=== PATIENT | female | born 1995 | race Hispanic/Latino ===

== ENCOUNTER 2017-09-17 22:27 | Emergency (ER) | payer SELFPAY ==
[2017-09-18] MEDS ORDERED: diphenhydrAMINE 25 MG CAP ONE (01:38)
[2017-09-18] MEDS ORDERED: predniSONE 20 MG TAB ONE (01:38)
== END 2017-09-18 01:52 | disposition home or self-care (01) ==
LOC: ERS 22:27
DX: L03.114 Cellulitis of left upper limb (principal); X50.9XXA Other and unspecified overexertion or strenuous movements or postures, initial encounter
CPT/HCPCS: 99283; J7506

== ENCOUNTER 2018-07-07 12:45 | Emergency (ER) | payer SELFPAY ==
[2018-07-07] MEDS ORDERED: Iopamidol 370 76% 100 ML VIAL ONE (13:17)
[2018-07-07 14:23] LABS: #Eosinphils 0.2 thou/uL (0.0-0.7); #Lymphocytes 0.8 thou/uL (1.20-3.40); #Monocytes 1.3 thou/uL (0.11-0.59); #Neutrophils 15.4 thou/uL (1.40-6.50); %Eosinophils 1.3 % (0.0-10.0); %Lymphocytes 4.5 % (21.0-51.0); %Monocytes 7.5 % (0.0-10.0); %Neutrophils 86.8 % (42.0-75.0); Mean Corpuscular HGB CONC 33.5 g/dL (32.0-36.0); Mean Corpuscular Hemoglobin 29.5 pg (27.0-31.0); Mean Corpuscular Volume 88.2 fL (78.0-98.0); Platelet Count 317 thou/uL (130-400); RBC Distribution Width 11.9 % (11.5-14.5); Red Blood Cell (RBC) Count 4.75 mill/uL (4.20-5.40); White Blood Cell (WBC) Count 17.8 thou/uL (4.8-10.8)
--- NOTE | 2018-07-07 14:40 | CT ---
CT BRAIN WITHOUT IV CONTRAST: HISTORY: Syncope with head injury. Dizziness. FINDINGS: Ethmoid and sphenoid sinus mucosal changes. The mastoids appear clear of acute process. No focal ma ss or midline shift. No intraaxial or extraaxial hemorrhage. IMPRESSION: 1. No significant mass, bleed, or other acute intracranial process. 2. Sinus mucosal disease. POS: OFF
[2018-07-07 14:43] LABS: Bilirubin Small (Negative); Blood, Urine Negative (Negative); Clarity CLOUDY (Clear); Glucose, Urine (Dipstick) Negative (Negative); Leukocyte Small (Negative); Nitrite Negative (Negative); Protein, Urine (Dipstick) 30 mg/dL (Neg-Trace); Specific Gravity, Urine 1.026 (1.002-1.036)
[2018-07-07 14:44] LABS: Pregnancy Test - Urine (BHCG) Negative (Negative); Pregu Control Background? CLEAR/WHITE (CLR/WHITE); Pregu Control Bar Appear? YES (CONTROL BAR); Specific Gravity 1.026 (1.002-1.036)
[2018-07-07 14:46] LABS: ALT (SGPT) 10 U/L (8-55); AST (SGOT) 17 U/L (5-34); Alkaline Phosphatase 88 U/L (40-150); Anion Gap 15 mmol/L (10-20); BUN (Urea Nitrogen) 12 mg/dL (7.0-18.7); Bilirubin, Total 0.9 mg/dL (0.2-1.2); Calc. Creatinine Clearance 0 mL/min (70-130); Calcium 8.9 mg/dL (7.8-10.44); Carbon Dioxide 21 mmol/L (22-29); Chloride 106 mmol/L (98-107); Estimated GFR-MDRD Greater than 90; Globulin 2.8 g/dL (2.4-3.5); Glucose 104 mg/dL (70-105); Potassium 3.7 mmol/L (3.5-5.1); Protein, Total 6.8 g/dL (6.0-8.3); Sodium 138 mmol/L (136-145)
[2018-07-07 14:47] LABS: Bacteria/HPF 1+ HPF (None Seen)
[2018-07-07 14:59] LABS: Hyaline Casts/LPF 0-3 HYALINE CAST LPF (0-3 Hyaline)
[2018-07-07 15:00] LABS: Renal Epithelial None Seen HPF (0-3); Transitional Epithelial NONE SEEN HPF (0-3)
--- NOTE | 2018-07-07 15:41 | CT ---
CT OF THE ABDOMEN AND PELVIS WITH CONTRAST: History: Left upper quadrant abdominal pain and dizziness. Syncope. Nausea, vomiting, and diarrhea. Technique: Multiple contiguous axial images were obtained in a CT of the abdomen and pelvis with contrast. Coron al reformats were performed. FINDINGS: The liver, gallbladder, kidneys, adrenal glands, spleen, and pancreas are unremarkable. No free air or stranding changes seen in the abdomen or pelvis A small amount of free fluid in the pelvis is like ly physiologic. The large and small bowel are unremarkable. The appendix is not definitely seen. No abdominal or pelv ic lymphadenopathy are seen. A calcified granuloma is seen in the left lung base. The patient has a naval piercing. The osseous st ructures are unremarkable. IMPRESSION: No evidence of acute intraabdominal/pelvic abnormalities. POS: [facility]
[2018-07-07] MEDS ORDERED: Ondansetron PF 4 MG/2 ML Vial ONE (16:53)
== END 2018-07-07 16:55 | disposition home or self-care (01) ==
LOC: EEVIPCON 12:45 → ERS 12:45
DX: A09 Infectious gastroenteritis and colitis, unspecified (principal); D72.829 Elevated white blood cell count, unspecified
CPT/HCPCS: 36415; 70450; 74177; 80053; 81003; 81015; 81025; 85025; 93005; 96361; 96374; J2405

== ENCOUNTER 2020-12-28 14:10 | Emergency (ER) | payer SELFPAY | END 2020-12-28 15:14 | disposition home or self-care (01) | LOC: ERS 14:10 | DX: R53.1 Weakness (principal); R68.83 Chills (without fever); T50.B95A Adverse effect of other viral vaccines, initial encounter; J45.909 Unspecified asthma, uncomplicated | CPT/HCPCS: 99281 ==

== ENCOUNTER 2022-01-14 15:43 | Outpatient (CLI) | payer BC | END 2022-01-14 15:44 | disposition home or self-care (01) | LOC: BICULT 15:43 | PROVIDERS: ATTEND Nurse Practitioner Family | DX: O36.80X0 Pregnancy with inconclusive fetal viability, not applicable or unspecified (principal); O20.9 Hemorrhage in early pregnancy, unspecified; Z3A.01 Less than 8 weeks gestation of pregnancy | CPT/HCPCS: 76856 ==